=== PATIENT | male | born 1985 | race Hispanic/Latino ===

== ENCOUNTER 2018-12-04 12:40 | Emergency (ER) | payer OTHER ==
[2018-12-04 12:45] VITALS: RESP 18
--- NOTE | 2018-12-04 13:14 | ED PDOC ---
Lower Extremity Pain/Injury Time Seen by Provider: 12/04/18 12:53 Chief Complaint (Nursing): Lower Extremity Problem/Injury Chief Complaint (Provider): Right Foot Injury History Per: Patient History/Exam Limitations: no limitations Onset/Duration Of Symptoms: Days (x1) Current Symptoms Are (Timing): Still Present Additional Complaint(s): 33 year old male presents to the ED for evaluation of right foot pain and swelling s/p inverting his ankle and landing on the outside aspect of the foot last night while running down a stair. Otherwise, denies numbness, tingling, l oss of consciousness, and any additional injuries. PMD: [facility] Past Medical History Reviewed: Historical Data, Nursing Documentation, Vital Signs Vital Signs: Last Vital Signs Temp 98.4 F 12/04/18 12:45 Pulse 75 12/04/18 12:45 Resp 18 12/04/18 12:45 BP 154/74 H 12/04/18 12:45 Pulse Ox 99 12/04/18 12:45 - Medical History PMH: No Chronic Diseases - Surgical History Surgical History: No Surg Hx - Family History Family History: States: Unknown Family Hx - Social History Current smoker - smoking cessation education provided: No Alcohol: Social Drugs: Denies - Home Medications Home Medications: Ambulatory Orders Medication Instructions Recorded Ciprofloxacin [Cipro] 500 mg PO BID #14 tab 04/12/16 Dicyclomine [Dicyclomine HCl] 10 mg PO TID PRN #12 cap 04/12/16 metroNIDAZOLE [Flagyl] 500 mg PO TID #21 tab 04/12/16 traMADol [Ultram] 50 mg PO TID PRN #12 tab 04/12/16 Diclofenac Potassium 50 mg PO BID #20 tablet 12/04/18 - Allergies Allergies/Adverse Reactions: Allergies Allergy/AdvReac Type Severity Reaction Status Date / Time No Known Allergies Allergy Verified 04/12/16 13:53 Review of Systems ROS Statement: Except As Marked, All Systems Reviewed And Found Negative Musculoskeletal: Positive for: Foot Pain (right with swelling) Neurological: Negative for: Numbness (or tingling), Other (loss of consciousness) Physical Exam - Reviewed Nursing Documentation Reviewed: Yes Vital Signs Reviewed: Yes - Physical Exam Appears: Positive for: No Acute Distress Head Exam: Positive for: ATRAUMATIC, NORMOCEPHALIC Skin: Positive for: Warm, Dry Eye Exam: Positive for: Normal appearance Neck: Positive for: Normal, Painless ROM Cardiovascular/Chest: Positive for: Regular Rate, Rhythm Respiratory: Positive for: Normal Breath Sounds. Negative for: Respiratory Distress Pulses-Dorsalis Pedis (L): 2+ Pulses-Dorsalis Pedis (R): 2+ Extremity: Positive for: Normal ROM (bilateral lower extremities including ankle and all toes), Tenderness (to right 5th metatarsal with ecchymosis and swelling to distal aspect of 5th metatarsal), Capillary Refill (less than 2 seconds). Negative for: Deformity Neurological/Psych: Positive for: Awake, Alert, Oriented (x3). Negative for: Motor/Sensory Deficits - ECG O2 Sat by Pulse Oximetry: 99 (RA) Pulse Ox Interpretation: Normal Medical Decision Making Medical Decision Making: Time: 1253 Initial Impression: right foot pain, r/o fracture Initial Plan: --Toradol 30mg IM --Tylenol 650mg PO --Right ankle XR --Right foot XR --Ice and instructions to elevate foot given to patient 1323 XR FINDINGS: BONES: There is a spiral/oblique comminuted minimally displaced fracture traversing the right 5th metatarsal JOINTS: Normal. SOFT TISSUES: Normal. OTHER FINDINGS: None. IMPRESSION: There is a spiral/oblique comminuted minimally displaced fracture traversing the right 5th metatarsal 1330 Podiatry consult placed. 1512 Podiatry, Dari Colon, at bedside. Crutches ordered Crutch training ordered and provided PT will follow up with Dr Payne Scribe Attestation: Documented by Shahla Jurado, acting as a scribe for Socrates Wheatley PA-C. Provider Scribe Attestation: All medical record entries made by the Scribe were at my direction and personally dictated by me. I have reviewed the chart and agree that the record accurately reflects my personal performance of the history, physical exam, medical decision making, and the department course for this patient. I have also personally directed, reviewed, and agree with the discharge instructions and disposition. Disposition - Clinical Impression Clinical Impression: Metatarsal bone fracture - Patient ED Disposition Is Patient to be Admitted: No Discussed With DrErin: Dari Colon Doctor Will See Patient In The: Office Counseled Patient/Family Regarding: Studies Performed, Diagnosis, Need For Followup, Rx Given - Disposition Referrals: Isak Payne MD [Staff Provider] - Trav Stern DPM [Doctor Podiatric Medicine] - Disposition: Routine/Home Disposition Time: 16:09 Condition: STABLE Additional Instructions: Follow up with Dr Payne as directed by Podiatry Prescriptions: Diclofenac Potassium 50 mg PO BID #20 tablet Instructions: Foot Fracture (DC) Forms: [facility] ([place])
--- NOTE | 2018-12-04 13:29 | RAD ---
Date of service: 12/04/2018 PROCEDURE: Right Ankle Radiographs. HISTORY: Rule out fracture COMPARISON: Correlation made with concurrent radiographs of the right foot. TECHNIQUE: 3 views obtained. FINDINGS: BONES: Redemonstrated is a spiral/oblique-comminuted fracture traversing the right 5th metatarsal JOINTS: Normal. No osteoarthritis. Ankle mortise maintained. Talar dome intact SOFT TISSUES: Normal. OTHER FINDINGS: None. IMPRESSION: Redemonstrated is a spiral/oblique-comminuted fracture traversing the right 5th metatarsal
--- NOTE | 2018-12-04 13:30 | RAD ---
Date of service: 12/04/2018 PROCEDURE: Right Foot Radiographs. HISTORY: Rule out fracture 5th metatarsal COMPARISON: None. TECHNIQUE: 3 views obtained. FINDINGS: BONES: There is a spiral/oblique comminuted minimally displaced fracture traversing the right 5th metatarsal JOINTS: Normal. SOFT TISSUES: Normal. OTHER FINDINGS: None. IMPRESSION: There is a spiral/oblique comminuted minimally displaced fracture traversing the right 5th metatarsal
--- NOTE | 2018-12-04 14:27 | CP.PCM.CON ---
History of Present Illness - History of Present Illness History of Present Illness: Podiatry consult note for Dr. Benson, 33 male presents to the ED for evaluation of right foot pain and swelling s/p inverting his ankle and landing on the outside aspect of the foot last night while running down the stairs. States hes unable to put weight on the leg, admits to more pain on top of the foot rather than bottom. States the pain is controlled with the pain medications. Otherwise, denies numbness, tingling, loss of consciousness, and any additional injuries. States he had an ankle sprain on the same side few years ago. Went through physical therapy and denies current pain or instability. Pmhx: none Pshx: none Allergies: none Social history: denies smoking cigarettes. Past Patient History - Past Social History Alcohol: Social Drugs: Denies - PSYCHIATRIC Hx Substance Use: No - SURGICAL HISTORY Hx Surgeries: No - ANESTHESIA Hx Anesthesia: No Meds Home Medications: Home Medication List Medication Instructions Recorded Confirmed Type Diclofenac Potassium 50 mg PO BID #20 tablet 12/04/18 Rx Allergies/Adverse Reactions: Allergies Allergy/AdvReac Type Severity Reaction Status Date / Time No Known Allergies Allergy Verified 04/12/16 13:53 Physical Exam - Constitutional Appears: Well, Non-toxic, No Acute Distress - Head Exam Head Exam: ATRAUMATIC, NORMOCEPHALIC - Eye Exam Eye Exam: Normal appearance - ENT Exam ENT Exam: Mucous Membranes Moist - Respiratory Exam Respiratory Exam: NORMAL BREATHING PATTERN - Cardiovascular Exam Cardiovascular Exam: REGULAR RHYTHM, +S1, +S2 - Extremities Exam Additional comments: Right lower extremity exam: vascular: Dp/PT 2/4, CFT <3 secs x 5, TG warm to warm, no edema or erythema noted. derm: no open lesions, minimal edema noted dorsal to fifth metatarsal, no clinical signs of infection, ecchymosis non the lateral forefoot andmidfoot, no erythema neuro: protective sensation intact via ipswich 12/08 ortho: no pain with ROM of the ankle, pain on direct palpation to the fifth metatarsal base, no pain on calf compression, no pain at the ankle joint - Neurological Exam Neurological exam: Alert, Oriented x3 Results - Vital Signs Recent Vital Signs: Last Vital Signs Temp 98.4 F 12/04/18 12:45 Pulse 75 12/04/18 12:45 Resp 18 12/04/18 12:45 BP 154/74 H 12/04/18 12:45 Pulse Ox 99 12/04/18 14:17 Assessment & Plan - Assessment and Plan (Free Text) Assessment: 33 yo male with no Pmhx seen and evaluated in the ED for right fifth metatarsal shaft oblique, displaced, and comminuted fracture Plan: Patient seen and evaluated chart labs vitals and x-rays reviewed X-ray of the right foot; oblique displaced,angulated, comminuted fifth shaft Well-padded posterior splint applied Patient to remain NWB to RLE with the use of crutches Patient crutch trained by the ED Patient educated on the importance of being NWB to avoid displacement of the fracture Patient to follow up in Dr. Benson/ Dr. Payne Patient to rest, ice and elevate RLE All questions answered Thank you for the consult
[2018-12-04 17:05] VITALS: BP 122/80; PULSE 78; TEMP 98; O2SAT 100
== END 2018-12-04 17:03 | disposition home or self-care (01) ==
LOC: H.ER 12:40
DX: S92.351A Displaced fracture of fifth metatarsal bone, right foot, initial encounter for closed fracture (principal); X50.9XXA Other and unspecified overexertion or strenuous movements or postures, initial encounter
CPT/HCPCS: 29515; 73610; 73630; 96372; 99285; J1885